=== PATIENT | female | born 1980 | race Caucasian/White ===

== ENCOUNTER → 2021-06-20 | Emergency (ER) | payer MEDICAID ==
[~2021-06-20] VITALS: Ht 152.4 cm; Wt 113.4 kg
[~2021-06-20] MED LIST: NEURONTIN300 MG PO; ONDANSETRON ODT4 MG PO; PAMELOR50 MG PO; PEPCID20 MG PO; PROTONIX40 MG PO; ZOLOFT100 MG PO
== END | disposition home or self-care (01) ==
LOC: ED 10:00
DX: R10.13 Epigastric pain (principal); R11.2 Nausea with vomiting, unspecified; R19.7 Diarrhea, unspecified; E11.9 Type 2 diabetes mellitus without complications; J45.909 Unspecified asthma, uncomplicated; Z88.2 Allergy status to sulfonamides; Z88.1 Allergy status to other antibiotic agents; Z88.8 Allergy status to other drugs, medicaments and biological substances; Z79.899 Other long term (current) drug therapy
CPT/HCPCS: 74177; 80053; 81001; 83690; 84703; 85025; 99284-25; J1885; Q9967